=== PATIENT | female | born 1985 | race Caucasian/White ===

== ENCOUNTER 2019-01-08 07:30 | Outpatient (RCR) | payer OTHER, SELFPAY ==
--- NOTE | 2018-09-17 15:31 | PT.OIE ---
Current Diagnoses Stress incontinence (female) (male) (09/17/18) Other female genital prolapse (09/17/18) Provider Visit Care Team Role Provider Type Jose Manuel Duran CNP Attending Provider Non-Staff Specialty: Medical Address: [address] [place] [address], [id number] Email: Physical Therapy Initial Evaluation PT-OP-A Visit Information Start: 09/17/18 13:19 Freq: Status: Active Protocol: Document 09/17/18 13:45 AMB (Rec: 09/17/18 15:11 AMB [email or web address]) Out-Patient Physical Therapy Visit Information Visit Information Visit Type Initial Evaluation Visit Start Time 13:45 Visit Stop Time 14:30 Total Visit Minutes 45 Visit Number 1 PT-OP-B Current Condition Start: 09/17/18 13:19 Freq: Status: Active Protocol: Document 09/17/18 13:45 AMB (Rec: 09/17/18 15:11 AMB [email or web address]) Current Condition History of Current Condition Onset Date June 2018 Current Complaints stress incontinence History of Current Condition Tamiko reports stress incontinence throughout her adult life which has recently worsened with the of her first child in June. Her daughter was 6 pounds but Tamiko reports a second degree tear during vaginal delivery. Since then coughing, laughing , and sneezing have all caused small leaks of urine, especially if she is standing or walking. She has tried to run on the treadmill a few times, and while she has not noticed leaks with that, she does empty her bladder right before getting on the treadmill. She is , but admits she is not drinking enough water. She has not menstruated yet. She does report some discomfort with intercourse, more anteriorly, especially with certain positions. Prior Functional Status Baseline Function- Other intermittent small leaks, but less frequent Current Functional Impairments (Reported) Functional Limitations- Other small leaks that are more frequent ( a few times a week) . 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 PT-OP-C Subjective Start: 09/17/18 13:19 Freq: Status: Active Protocol: Document 09/17/18 13:45 AMB (Rec: 09/17/18 15:11 AMB [email or web address]) Patient Questionnaires Pelvic Pain and Urgency/Frequency Patient Symptom Scale Pelvic Pain Score 7 PT-OP-I Pelvic Floor Start: 09/17/18 13:19 Freq: Status: Active Protocol: Document 09/17/18 13:45 AMB (Rec: 09/17/18 15:11 AMB [email or web address]) Pelvic Floor Assessment Urine Pelvic Floor Surgery No Urinary Symptoms Prolapse Pain Leakage Size Small Leakage Cause Cough Exercise Sneeze Leaks Per Day 2-3x/week Voiding Frequency 4x/day Nocturia 1 Urine Pad Type Panty Liner Bowel Bowel Symptoms Constipation Pelvic Clock Pelvic Clock 12-3 Tenderness Pelvic Clock 3-6 Tenderness Pelvic Clock 6-9 Tenderness Pelvic Clock 9-12 Tenderness Pelvic Clock Other tenderness at perineum, but more so at urethra Prolapse Cystocele Grade 3 Rectocele Grade 1 SEMG (uV) Baseline 3.5 Quick Contraction 13 10 Second Contraction 9 Contraction Ability Voluntary Contraction Moderate Voluntary Relaxation Moderate Manual Muscle Testing Left 1 Manual Muscle Testing Right 1 Manual Muscle Testing Anterior 2 Manual Muscle Testing Posterior 2 Muscle Endurance (Seconds) 10 Number of Quick Contractions In 10 5 Seconds PT-OP-T Assessment and Plan Start: 09/17/18 13:19 Freq: Status: Active Protocol: Document 09/17/18 13:45 AMB (Rec: 09/17/18 15:28 AMB [email or web address]) Physical Therapy Assessment Rehab Potential Rehabilitation Potential Excellent Evaluation Complexity Number of Personal Factors/Comorbidities 1-2 Number of Body Systems Impaired 3 Clinical Presentation at Evaluation Stable Impairments Impairments Pain Soft Tissue Mobility Strength Goals Three Impairment continence Short Term Goal (STG) Tamiko will report she is able to avoid a leak with coughing if she contracts her pelvic floor muscles before the cough . STG Duration 4 weeks Level Vial Setter Goal (LTG) Tamiko will engage in the exercise of her choice without leaking. LTG Duration 8 weeks Two Impairment painful intercourse Short Term Goal (STG) Tamiko will engage in the postion of her choice without an increase in pelvic pain. STG Duration 4 weeks One Impairment pelvic floor strength Short Term Goal (STG) Tamiko will increase her pelvic floor strength to 4/5. STG Duration 4 weeks Fci Goal (LTG) Tamiko will peform a pelvic floor contraction while squatting. LTG Duration 8 weeks Assessment Summary Assessment The patient attends physical therapy less than 3 months post with stress urinary incontinence. She does have visible prolapse, but had fair strength considering her post status. She will benefit from PT to instruct her in appropriate pelvic floor strengthening, and address painful intercourse if self massage does not resolve it fully. Physical Therapy Plan Frequency and Duration Frequency of Treatment 1x/Week Duration of Treatment 8 weeks Plan of Care Start Date 09/17/18 Plan of Care End Date 11/12/18 Therapeutic Interventions Therapeutic Interventions Home Exercise Program Manual Therapy Neuromuscular Re-education Self-Care/Home Management Therapeutic Activities Therapeutic Exercises Modalities Biofeedback Electric Stimulation Next Visit Focus/Plan Next Note Type Treatment Note Next Visit Plan Progress pelvic floor strengthening into seated and possibly standing if pt tolerating well.
--- NOTE | 2018-09-17 15:31 | PT.OPPOC ---
Current Diagnoses Stress incontinence (female) (male) (09/17/18) Other female genital prolapse (09/17/18) Provider Visit Care Team Role Provider Type Jose Manuel Duran CNP Attending Provider Non-Staff Specialty: Medical Address: [address] [place] [address], [id number] Email: Plan Of Care PT-OP-T Assessment and Plan Start: 09/17/18 13:19 Freq: Status: Active Protocol: Document 09/17/18 13:45 AMB (Rec: 09/17/18 15:28 AMB [email or web address]) Physical Therapy Assessment Rehab Potential Rehabilitation Potential Excellent Evaluation Complexity Number of Personal Factors/Comorbidities 1-2 Number of Body Systems Impaired 3 Clinical Presentation at Evaluation Stable Impairments Impairments Pain Soft Tissue Mobility Strength Goals Three Impairment continence Short Term Goal (STG) Tamiko will report she is able to avoid a leak with coughing if she contracts her pelvic floor muscles before the cough . STG Duration 4 weeks Insurance Administrator Goal (LTG) Tamiko will engage in the exercise of her choice without leaking. LTG Duration 8 weeks Two Impairment painful intercourse Short Term Goal (STG) Tamiko will engage in the postion of her choice without an increase in pelvic pain. STG Duration 4 weeks One Impairment pelvic floor strength Short Term Goal (STG) Tamiko will increase her pelvic floor strength to 4/5. STG Duration 4 weeks Mcfp Goal (LTG) Tamiko will peform a pelvic floor contraction while squatting. LTG Duration 8 weeks Assessment Summary Assessment The patient attends physical therapy less than 3 months post with stress urinary incontinence. She does have visible prolapse, but had fair strength considering her post status. She will benefit from PT to instruct her in appropriate pelvic floor strengthening, and address painful intercourse if self massage does not resolve it fully. Physical Therapy Plan Frequency and Duration Frequency of Treatment 1x/Week Duration of Treatment 8 weeks Plan of Care Start Date 09/17/18 Plan of Care End Date 11/12/18 Therapeutic Interventions Therapeutic Interventions Home Exercise Program Manual Therapy Neuromuscular Re-education Self-Care/Home Management Therapeutic Activities Therapeutic Exercises Modalities Biofeedback Electric Stimulation Next Visit Focus/Plan Next Note Type Treatment Note Next Visit Plan Progress pelvic floor strengthening into seated and possibly standing if pt tolerating well. Plan of Care Dates Plan of Care Start Date 09/17/18 Plan of Care End Date 11/12/18 Please Sign and Return: I have reviewed this Plan of Care and certify that the skilled therapy services above are required to meet the patient?s needs. Physician Signature Date Printed Name and Credentials Clinical Instructor Signature Printed Name and Credentials
--- NOTE | 2018-09-26 15:15 | PT.OTN ---
Current Diagnoses Other female genital prolapse (09/26/18) Physical Therapy Treatment Note PT-OP-A Visit Information Start: 09/17/18 13:19 Freq: Status: Active Protocol: Document 09/26/18 07:30 AMB (Rec: 09/26/18 11:16 AMB [email or web address]) Out-Patient Physical Therapy Visit Information Visit Information Visit Type Treatment Note Visit Start Time 07:30 Visit Stop Time 08:15 Total Visit Minutes 45 Visit Number 2 PT-OP-B Current Condition Start: 09/17/18 13:19 Freq: Status: Active Protocol: Document 09/17/18 13:45 AMB (Rec: 09/17/18 15:11 AMB [email or web address]) Current Condition History of Current Condition Onset Date June 2018 Current Complaints stress incontinence History of Current Condition Tamiko reports stress incontinence throughout her adult life which has recently worsened with the of her first child in June. Her daughter was 6 pounds but Tamiko reports a second degree tear during vaginal delivery. Since then coughing, laughing , and sneezing have all caused small leaks of urine, especially if she is standing or walking. She has tried to run on the treadmill a few times, and while she has not noticed leaks with that, she does empty her bladder right before getting on the treadmill. She is , but admits she is not drinking enough water. She has not menstruated yet. She does report some discomfort with intercourse, more anteriorly, especially with certain positions. Prior Functional Status Baseline Function- Other intermittent small leaks, but less frequent Current Functional Impairments (Reported) Functional Limitations- Other small leaks that are more frequent ( a few times a week) . 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 PT-OP-C Subjective Start: 09/17/18 13:19 Freq: Status: Active Protocol: Document 09/26/18 07:30 AMB (Rec: 09/26/18 11:16 AMB [email or web address]) OP-PT Subjective Patient Comments Patient Comments Pt is doing well, back at work so drinking more fluids. Has noticed a bit more back pain with sitting at her desk. Running fast does cause leaks. PT-OP-I Pelvic Floor Start: 09/17/18 13:19 Freq: Status: Active Protocol: Document 09/17/18 13:45 AMB (Rec: 09/17/18 15:11 AMB [email or web address]) Pelvic Floor Assessment Urine Pelvic Floor Surgery No Urinary Symptoms Prolapse Pain Leakage Size Small Leakage Cause Cough Exercise Sneeze Leaks Per Day 2-3x/week Voiding Frequency 4x/day Nocturia 1 Urine Pad Type Panty Liner Bowel Bowel Symptoms Constipation Pelvic Clock Pelvic Clock 12-3 Tenderness Pelvic Clock 3-6 Tenderness Pelvic Clock 6-9 Tenderness Pelvic Clock 9-12 Tenderness Pelvic Clock Other tenderness at perineum, but more so at urethra Prolapse Cystocele Grade 3 Rectocele Grade 1 SEMG (uV) Baseline 3.5 Quick Contraction 13 10 Second Contraction 9 Contraction Ability Voluntary Contraction Moderate Voluntary Relaxation Moderate Manual Muscle Testing Left 1 Manual Muscle Testing Right 1 Manual Muscle Testing Anterior 2 Manual Muscle Testing Posterior 2 Muscle Endurance (Seconds) 10 Number of Quick Contractions In 10 5 Seconds PT-OP-Q Treatments Start: 09/17/18 13:19 Freq: Status: Active Protocol: Document 09/26/18 07:30 AMB (Rec: 09/26/18 11:16 AMB [email or web address]) Therapeutic Exercises Supine Exercises 2 Supine Exercise Name roll in Equipment Used ball Reps/Minutes 2x10 1 Supine Exercise Name roll out with pf contract Resistance #3 t band Reps/Minutes 2x10 Standing Exercises 1 Standing Exercise Name quick flicks and long holds Comments WBOS easier than modified tandem Neuro Re-Education Treatment Other Activities 1 Details pelvic floor quick flick and long hold with sEMG Comments Max 17, avg 13, resting 4 PT-OP-T Assessment and Plan Start: 09/17/18 13:19 Freq: Status: Active Protocol: Document 09/26/18 07:30 AMB (Rec: 09/26/18 11:16 AMB [email or web address]) Physical Therapy Assessment Assessment Summary Assessment Pt doing well with supine exercises, standing is more difficult. Discussed ergonomic setup, suggest foot rest since lower keyboard not an option. Physical Therapy Plan Next Visit Focus/Plan Next Note Type Treatment Note Next Visit Plan Progress pelvic floor strengthening into seated and possibly standing if pt tolerating well.
--- NOTE | 2018-10-03 10:12 | PT.OTN ---
Current Diagnoses Other female genital prolapse (10/03/18) Physical Therapy Treatment Note PT-OP-A Visit Information Start: 09/17/18 13:19 Freq: Status: Active Protocol: Document 10/03/18 07:30 AMB (Rec: 10/03/18 09:48 AMB [email or web address]) Out-Patient Physical Therapy Visit Information Visit Information Visit Type Treatment Note Visit Start Time 07:30 Visit Stop Time 08:15 Total Visit Minutes 45 Visit Number 3 PT-OP-B Current Condition Start: 09/17/18 13:19 Freq: Status: Active Protocol: Document 09/17/18 13:45 AMB (Rec: 09/17/18 15:11 AMB [email or web address]) Current Condition History of Current Condition Onset Date June 2018 Current Complaints stress incontinence History of Current Condition Tamiko reports stress incontinence throughout her adult life which has recently worsened with the of her first child in June. Her daughter was 6 pounds but Tamiko reports a second degree tear during vaginal delivery. Since then coughing, laughing , and sneezing have all caused small leaks of urine, especially if she is standing or walking. She has tried to run on the treadmill a few times, and while she has not noticed leaks with that, she does empty her bladder right before getting on the treadmill. She is , but admits she is not drinking enough water. She has not menstruated yet. She does report some discomfort with intercourse, more anteriorly, especially with certain positions. Prior Functional Status Baseline Function- Other intermittent small leaks, but less frequent Current Functional Impairments (Reported) Functional Limitations- Other small leaks that are more frequent ( a few times a week) . 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 PT-OP-C Subjective Start: 09/17/18 13:19 Freq: Status: Active Protocol: Document 10/03/18 07:30 AMB (Rec: 10/03/18 09:48 AMB [email or web address]) OP-PT Subjective Patient Comments Patient Comments Has not tried running since last week. Has been doing her workout, got a foot stool, but back is still hurting at work. PT-OP-I Pelvic Floor Start: 09/17/18 13:19 Freq: Status: Active Protocol: Document 09/17/18 13:45 AMB (Rec: 09/17/18 15:11 AMB [email or web address]) Pelvic Floor Assessment Urine Pelvic Floor Surgery No Urinary Symptoms Prolapse Pain Leakage Size Small Leakage Cause Cough Exercise Sneeze Leaks Per Day 2-3x/week Voiding Frequency 4x/day Nocturia 1 Urine Pad Type Panty Liner Bowel Bowel Symptoms Constipation Pelvic Clock Pelvic Clock 12-3 Tenderness Pelvic Clock 3-6 Tenderness Pelvic Clock 6-9 Tenderness Pelvic Clock 9-12 Tenderness Pelvic Clock Other tenderness at perineum, but more so at urethra Prolapse Cystocele Grade 3 Rectocele Grade 1 SEMG (uV) Baseline 3.5 Quick Contraction 13 10 Second Contraction 9 Contraction Ability Voluntary Contraction Moderate Voluntary Relaxation Moderate Manual Muscle Testing Left 1 Manual Muscle Testing Right 1 Manual Muscle Testing Anterior 2 Manual Muscle Testing Posterior 2 Muscle Endurance (Seconds) 10 Number of Quick Contractions In 10 5 Seconds PT-OP-Q Treatments Start: 09/17/18 13:19 Freq: Status: Active Protocol: Document 10/03/18 07:30 AMB (Rec: 10/03/18 09:48 AMB [email or web address]) Therapeutic Exercises Supine Exercises 3 Supine Exercise Name pelvic tilt with pelvic floor and TrA stab Reps/Minutes 10 1 Supine Exercise Name roll out with pf contract Resistance #3 t band Reps/Minutes 2x10 Standing Exercises 2 Standing Exercise Name partial lunge and squat Comments with long hold 1 Standing Exercise Name quick flicks and long holds Comments WBOS easier than modified tandem Neuro Re-Education Treatment Other Activities 1 Details pelvic floor quick flick and long hold with sEMG Comments Max 20, PT-OP-T Assessment and Plan Start: 09/17/18 13:19 Freq: Status: Active Protocol: Document 10/03/18 07:30 AMB (Rec: 10/03/18 09:48 AMB [email or web address]) Physical Therapy Assessment Assessment Summary Assessment Pt's core continues to be weak , which is impacting her back pain. Improved pelvic floor strength in standing withi movement. Physical Therapy Plan Next Visit Focus/Plan Next Note Type Treatment Note Next Visit Plan Progress pelvic floor strengthening into seated and possibly standing if pt tolerating well.
--- NOTE | 2018-10-17 11:42 | PT.OTN ---
Current Diagnoses Other female genital prolapse (10/17/18) Physical Therapy Treatment Note PT-OP-A Visit Information Start: 09/17/18 13:19 Freq: Status: Active Protocol: Document 10/17/18 07:30 AMB (Rec: 10/17/18 08:42 AMB [id number]) Out-Patient Physical Therapy Visit Information Visit Information Visit Type Treatment Note Visit Start Time 07:30 Visit Stop Time 08:15 Total Visit Minutes 45 Visit Number 4 PT-OP-B Current Condition Start: 09/17/18 13:19 Freq: Status: Active Protocol: Document 09/17/18 13:45 AMB (Rec: 09/17/18 15:11 AMB [email or web address]) Current Condition History of Current Condition Onset Date June 2018 Current Complaints stress incontinence History of Current Condition Tamiko reports stress incontinence throughout her adult life which has recently worsened with the of her first child in June. Her daughter was 6 pounds but Tamiko reports a second degree tear during vaginal delivery. Since then coughing, laughing , and sneezing have all caused small leaks of urine, especially if she is standing or walking. She has tried to run on the treadmill a few times, and while she has not noticed leaks with that, she does empty her bladder right before getting on the treadmill. She is , but admits she is not drinking enough water. She has not menstruated yet. She does report some discomfort with intercourse, more anteriorly, especially with certain positions. Prior Functional Status Baseline Function- Other intermittent small leaks, but less frequent Current Functional Impairments (Reported) Functional Limitations- Other small leaks that are more frequent ( a few times a week) . 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 PT-OP-C Subjective Start: 09/17/18 13:19 Freq: Status: Active Protocol: Document 10/17/18 07:30 AMB (Rec: 10/17/18 08:42 AMB [email or web address]) OP-PT Subjective Patient Comments Patient Comments Pt has been doing well, not noticing any leaks, but not pushing it either. PT-OP-I Pelvic Floor Start: 09/17/18 13:19 Freq: Status: Active Protocol: Document 09/17/18 13:45 AMB (Rec: 09/17/18 15:11 AMB [email or web address]) Pelvic Floor Assessment Urine Pelvic Floor Surgery No Urinary Symptoms Prolapse Pain Leakage Size Small Leakage Cause Cough Exercise Sneeze Leaks Per Day 2-3x/week Voiding Frequency 4x/day Nocturia 1 Urine Pad Type Panty Liner Bowel Bowel Symptoms Constipation Pelvic Clock Pelvic Clock 12-3 Tenderness Pelvic Clock 3-6 Tenderness Pelvic Clock 6-9 Tenderness Pelvic Clock 9-12 Tenderness Pelvic Clock Other tenderness at perineum, but more so at urethra Prolapse Cystocele Grade 3 Rectocele Grade 1 SEMG (uV) Baseline 3.5 Quick Contraction 13 10 Second Contraction 9 Contraction Ability Voluntary Contraction Moderate Voluntary Relaxation Moderate Manual Muscle Testing Left 1 Manual Muscle Testing Right 1 Manual Muscle Testing Anterior 2 Manual Muscle Testing Posterior 2 Muscle Endurance (Seconds) 10 Number of Quick Contractions In 10 5 Seconds PT-OP-Q Treatments Start: 09/17/18 13:19 Freq: Status: Active Protocol: Document 10/17/18 07:30 AMB (Rec: 10/17/18 08:49 AMB [id number]) Therapeutic Exercises Supine Exercises 3 Supine Exercise Name pelvic tilt with pelvic floor and TrA stab Reps/Minutes 10 Comments vc for TrA Standing Exercises 4 Standing Exercise Name scap squeeze with TrA and pelvic floor 3 Standing Exercise Name sit to stand Comments with long hold 2 Standing Exercise Name partial lunge and squat Comments with long hold Other Exercises 1 Other Exercise Name quadruped shoulder flexion Comments with pelvic floor and TrA PT-OP-T Assessment and Plan Start: 09/17/18 13:19 Freq: Status: Active Protocol: Document 10/17/18 07:30 AMB (Rec: 10/17/18 08:45 AMB [id number]) Physical Therapy Assessment Assessment Summary Assessment Tamiko's low back pain is improving, but she is noticing upper back pain with return to work. She had difficulty with TrA stabilization, tending to push stomach out rather than pulling in. Tamiko does have palpable diastasis recti that may make TrA stab more challenging. No leaks, but also not pushing herself as far as exercise because has been very busy. Physical Therapy Plan Next Visit Focus/Plan Next Note Type Treatment Note Next Visit Plan Re-examine TrA stabilization, progress in quadruped
--- NOTE | 2018-10-26 12:00 | PT.OTN ---
Current Diagnoses Other female genital prolapse (10/26/18) Physical Therapy Treatment Note PT-OP-A Visit Information Start: 09/17/18 13:19 Freq: Status: Active Protocol: Document 10/26/18 11:15 BS (Rec: 10/26/18 10:34 BS [id number]) Out-Patient Physical Therapy Visit Information Visit Information Visit Type Treatment Note Visit Start Time 10:30 Visit Stop Time 11:12 Total Visit Minutes 42 Visit Number 5 PT-OP-B Current Condition Start: 09/17/18 13:19 Freq: Status: Active Protocol: Document 09/17/18 13:45 AMB (Rec: 09/17/18 15:11 AMB [email or web address]) Current Condition History of Current Condition Onset Date June 2018 Current Complaints stress incontinence History of Current Condition Tamiko reports stress incontinence throughout her adult life which has recently worsened with the of her first child in June. Her daughter was 6 pounds but Tamiko reports a second degree tear during vaginal delivery. Since then coughing, laughing , and sneezing have all caused small leaks of urine, especially if she is standing or walking. She has tried to run on the treadmill a few times, and while she has not noticed leaks with that, she does empty her bladder right before getting on the treadmill. She is , but admits she is not drinking enough water. She has not menstruated yet. She does report some discomfort with intercourse, more anteriorly, especially with certain positions. Prior Functional Status Baseline Function- Other intermittent small leaks, but less frequent Current Functional Impairments (Reported) Functional Limitations- Other small leaks that are more frequent ( a few times a week) . 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 PT-OP-C Subjective Start: 09/17/18 13:19 Freq: Status: Active Protocol: Document 10/26/18 11:15 BS (Rec: 10/26/18 10:34 BS [id number]) OP-PT Subjective Patient Comments Patient Comments Pt has done 10 min workout and has not had any leaking. Feels like she is better able to activate TA. PT-OP-I Pelvic Floor Start: 09/17/18 13:19 Freq: Status: Active Protocol: Document 09/17/18 13:45 AMB (Rec: 09/17/18 15:11 AMB [email or web address]) Pelvic Floor Assessment Urine Pelvic Floor Surgery No Urinary Symptoms Prolapse Pain Leakage Size Small Leakage Cause Cough Exercise Sneeze Leaks Per Day 2-3x/week Voiding Frequency 4x/day Nocturia 1 Urine Pad Type Panty Liner Bowel Bowel Symptoms Constipation Pelvic Clock Pelvic Clock 12-3 Tenderness Pelvic Clock 3-6 Tenderness Pelvic Clock 6-9 Tenderness Pelvic Clock 9-12 Tenderness Pelvic Clock Other tenderness at perineum, but more so at urethra Prolapse Cystocele Grade 3 Rectocele Grade 1 SEMG (uV) Baseline 3.5 Quick Contraction 13 10 Second Contraction 9 Contraction Ability Voluntary Contraction Moderate Voluntary Relaxation Moderate Manual Muscle Testing Left 1 Manual Muscle Testing Right 1 Manual Muscle Testing Anterior 2 Manual Muscle Testing Posterior 2 Muscle Endurance (Seconds) 10 Number of Quick Contractions In 10 5 Seconds PT-OP-Q Treatments Start: 09/17/18 13:19 Freq: Status: Active Protocol: Document 10/26/18 11:15 BS (Rec: 10/26/18 11:51 BS [id number]) Therapeutic Exercises Supine Exercises 3 Supine Exercise Name pelvic tilt with pelvic floor and TrA stab Reps/Minutes 15 Comments vc for TrA 1 Supine Exercise Name roll out with pf contract Resistance #3 t band, small ball Reps/Minutes x20 Standing Exercises 2 Standing Exercise Name partial lunge and squat Resistance 7# DBs Reps/Minutes x15 each Comments 2 DBs lunge, 1 7# squat 1 Standing Exercise Name Hip Abduction Side bilateral Reps/Minutes x15 each Comments pelvic floor contraction Other Exercises 2 Other Exercise Name Quadruped TA contraction Reps/Minutes x12 1 Other Exercise Name Quadruped alternating arms/ legs Reps/Minutes x15 each Comments begin with arms progress to arms and legs Manual Therapy Treatment Taping 1 Body Location Abdominals Comments KT Tape, 2 Xs over lower abs PT-OP-T Assessment and Plan Start: 09/17/18 13:19 Freq: Status: Active Protocol: Document 10/26/18 11:15 BS (Rec: 10/26/18 11:51 BS [id number]) Physical Therapy Assessment Assessment Summary Assessment Tamiko has taken this week off of work and her back has felt better but she continues to demo poor posture when holding baby. Pt is showing improved ability to engage TA during exercises. Physical Therapy Plan Next Visit Focus/Plan Next Note Type Treatment Note Next Visit Plan Assess response to KT taping. Progress quadruped and standing exercises as able.
--- NOTE | 2018-11-02 09:02 | PT.OTN ---
Current Diagnoses Other female genital prolapse (11/02/18) Physical Therapy Treatment Note PT-OP-A Visit Information Start: 09/17/18 13:19 Freq: Status: Active Protocol: Document 11/02/18 08:15 BS (Rec: 11/02/18 07:31 BS [id number]) Out-Patient Physical Therapy Visit Information Visit Information Visit Type Treatment Note Visit Start Time 07:30 Visit Stop Time 08:11 Total Visit Minutes 41 Visit Number 6 PT-OP-B Current Condition Start: 09/17/18 13:19 Freq: Status: Active Protocol: Document 09/17/18 13:45 AMB (Rec: 09/17/18 15:11 AMB [email or web address]) Current Condition History of Current Condition Onset Date June 2018 Current Complaints stress incontinence History of Current Condition Tamiko reports stress incontinence throughout her adult life which has recently worsened with the of her first child in June. Her daughter was 6 pounds but Tamiko reports a second degree tear during vaginal delivery. Since then coughing, laughing , and sneezing have all caused small leaks of urine, especially if she is standing or walking. She has tried to run on the treadmill a few times, and while she has not noticed leaks with that, she does empty her bladder right before getting on the treadmill. She is , but admits she is not drinking enough water. She has not menstruated yet. She does report some discomfort with intercourse, more anteriorly, especially with certain positions. Prior Functional Status Baseline Function- Other intermittent small leaks, but less frequent Current Functional Impairments (Reported) Functional Limitations- Other small leaks that are more frequent ( a few times a week) . 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 PT-OP-C Subjective Start: 09/17/18 13:19 Freq: Status: Active Protocol: Document 11/02/18 08:15 BS (Rec: 11/02/18 07:31 BS [id number]) OP-PT Subjective Patient Comments Patient Comments Pt has had 2 instances of of urinary leakage since last session. Once during sneezing while going down stairs and then when transitioning from sit to stand. Pt reports that she did like the KT tape on abdominals for faciliation of TA contraction during exercises. PT-OP-I Pelvic Floor Start: 09/17/18 13:19 Freq: Status: Active Protocol: Document 09/17/18 13:45 AMB (Rec: 09/17/18 15:11 AMB [email or web address]) Pelvic Floor Assessment Urine Pelvic Floor Surgery No Urinary Symptoms Prolapse Pain Leakage Size Small Leakage Cause Cough Exercise Sneeze Leaks Per Day 2-3x/week Voiding Frequency 4x/day Nocturia 1 Urine Pad Type Panty Liner Bowel Bowel Symptoms Constipation Pelvic Clock Pelvic Clock 12-3 Tenderness Pelvic Clock 3-6 Tenderness Pelvic Clock 6-9 Tenderness Pelvic Clock 9-12 Tenderness Pelvic Clock Other tenderness at perineum, but more so at urethra Prolapse Cystocele Grade 3 Rectocele Grade 1 SEMG (uV) Baseline 3.5 Quick Contraction 13 10 Second Contraction 9 Contraction Ability Voluntary Contraction Moderate Voluntary Relaxation Moderate Manual Muscle Testing Left 1 Manual Muscle Testing Right 1 Manual Muscle Testing Anterior 2 Manual Muscle Testing Posterior 2 Muscle Endurance (Seconds) 10 Number of Quick Contractions In 10 5 Seconds PT-OP-Q Treatments Start: 09/17/18 13:19 Freq: Status: Active Protocol: Document 11/02/18 08:15 BS (Rec: 11/02/18 07:31 BS [id number]) Therapeutic Exercises Supine Exercises 3 Supine Exercise Name pelvic tilt with pelvic floor and TrA stab Reps/Minutes 2x15 Comments pre & post KT taping abdominals 1 Supine Exercise Name roll out with pf contract Resistance #3 t band, small ball Reps/Minutes x20 Standing Exercises 5 Standing Exercise Name Mini Squats Equipment Used no weights Reps/Minutes x10 Comments TA contraction 2 Standing Exercise Name partial lunge and squat Resistance 7# DBs Reps/Minutes x10 each Comments 2 DBs lunge, 1 7# squat 1 Standing Exercise Name Hip Abduction Side bilateral Reps/Minutes x12 each Comments pelvic floor contraction Other Exercises 2 Other Exercise Name Quadruped arms only Reps/Minutes x15 Comments TA bracing 1 Other Exercise Name Quadruped alternating arms/ legs Reps/Minutes x15 each Comments VCs for TA contraction, following KT taping Manual Therapy Treatment Taping 1 Body Location Abdominals Comments KT Tape, 2 Xs over lower abs PT-OP-T Assessment and Plan Start: 09/17/18 13:19 Freq: Status: Active Protocol: Document 11/02/18 08:15 BS (Rec: 11/02/18 08:13 BS [id number]) Physical Therapy Assessment Assessment Summary Assessment Tamiko has returned to work this week and is noticing more back pain, she has made some modifications to her work environment. She has had 2 episodes of leakage since last apt. We have progressed her pelvic floor exercises with added resistance and standing lunges/squats. Physical Therapy Plan Next Visit Focus/Plan Next Note Type Treatment Note Next Visit Plan Monitor leaking, if more leaking then reduce resistance with lunges and squats as pt may have more pelvic floor fatigue with recent exercise progression. Pt plans to trial running this weekend, ask about leaking.
--- NOTE | 2018-11-06 12:47 | PT.OTN ---
Current Diagnoses Other female genital prolapse (11/06/18) Physical Therapy Treatment Note PT-OP-A Visit Information Start: 09/17/18 13:19 Freq: Status: Active Protocol: Document 11/06/18 07:30 AMB (Rec: 11/06/18 07:50 AMB [id number]) Out-Patient Physical Therapy Visit Information Visit Information Visit Type Treatment Note Visit Start Time 07:30 Visit Stop Time 08:11 Total Visit Minutes 41 Visit Number 7 PT-OP-B Current Condition Start: 09/17/18 13:19 Freq: Status: Active Protocol: Document 09/17/18 13:45 AMB (Rec: 09/17/18 15:11 AMB [email or web address]) Current Condition History of Current Condition Onset Date June 2018 Current Complaints stress incontinence History of Current Condition Tamiko reports stress incontinence throughout her adult life which has recently worsened with the of her first child in June. Her daughter was 6 pounds but Tamiko reports a second degree tear during vaginal delivery. Since then coughing, laughing , and sneezing have all caused small leaks of urine, especially if she is standing or walking. She has tried to run on the treadmill a few times, and while she has not noticed leaks with that, she does empty her bladder right before getting on the treadmill. She is , but admits she is not drinking enough water. She has not menstruated yet. She does report some discomfort with intercourse, more anteriorly, especially with certain positions. Prior Functional Status Baseline Function- Other intermittent small leaks, but less frequent Current Functional Impairments (Reported) Functional Limitations- Other small leaks that are more frequent ( a few times a week) . 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 PT-OP-C Subjective Start: 09/17/18 13:19 Freq: Status: Active Protocol: Document 11/06/18 07:30 AMB (Rec: 11/06/18 07:50 AMB [id number]) OP-PT Subjective Patient Comments Patient Comments Leaking with standing sneeze on Monday, able to do jumping jacks, but had just voided bladder. PT-OP-I Pelvic Floor Start: 09/17/18 13:19 Freq: Status: Active Protocol: Document 09/17/18 13:45 AMB (Rec: 09/17/18 15:11 AMB [email or web address]) Pelvic Floor Assessment Urine Pelvic Floor Surgery No Urinary Symptoms Prolapse Pain Leakage Size Small Leakage Cause Cough Exercise Sneeze Leaks Per Day 2-3x/week Voiding Frequency 4x/day Nocturia 1 Urine Pad Type Panty Liner Bowel Bowel Symptoms Constipation Pelvic Clock Pelvic Clock 12-3 Tenderness Pelvic Clock 3-6 Tenderness Pelvic Clock 6-9 Tenderness Pelvic Clock 9-12 Tenderness Pelvic Clock Other tenderness at perineum, but more so at urethra Prolapse Cystocele Grade 3 Rectocele Grade 1 SEMG (uV) Baseline 3.5 Quick Contraction 13 10 Second Contraction 9 Contraction Ability Voluntary Contraction Moderate Voluntary Relaxation Moderate Manual Muscle Testing Left 1 Manual Muscle Testing Right 1 Manual Muscle Testing Anterior 2 Manual Muscle Testing Posterior 2 Muscle Endurance (Seconds) 10 Number of Quick Contractions In 10 5 Seconds PT-OP-Q Treatments Start: 09/17/18 13:19 Freq: Status: Active Protocol: Document 11/06/18 07:30 AMB (Rec: 11/06/18 08:19 AMB [id number]) Cardio Equipment Elliptical Duration (Minutes) 4 Resistance 7 Gym Equipment Shuttle Recovery Bilateral Squats Details plyos Resistance 50# Therapeutic Exercises Supine Exercises 3 Supine Exercise Name pelvic tilt with pelvic floor and TrA stab Reps/Minutes 2x15 Comments pre & post KT taping abdominals 1 Supine Exercise Name roll out with pf contract Resistance #3 t band, small ball Reps/Minutes x20 Standing Exercises 5 Standing Exercise Name Mini Squats Equipment Used no weights Reps/Minutes x10 Comments TA contraction 2 Standing Exercise Name partial lunge and squat Resistance 10# DBs Reps/Minutes x10 each Comments 2 DBs lunge, 1 7# squat Other Exercises 2 Other Exercise Name Quadruped arms only Reps/Minutes x15 Comments TA bracing 1 Other Exercise Name Quadruped alternating arms/ legs Reps/Minutes x15 each Comments VCs for TA contraction, following KT taping Therapeutic Activity Therapeutic Activity 1 Name lifting with PF contract Comments 20# waist to knee height. PT-OP-T Assessment and Plan Start: 09/17/18 13:19 Freq: Status: Active Protocol: Document 11/06/18 07:30 AMB (Rec: 11/06/18 08:19 AMB [id number]) Physical Therapy Assessment Assessment Summary Assessment Pt tolerated all strengthening without feeling leaks today, abdominal stabilization is improving. Plan to progress HEP at next visit. Physical Therapy Plan Next Visit Focus/Plan Next Note Type Treatment Note Next Visit Plan Monitor leaking, Assess return to running.
--- NOTE | 2018-11-16 16:19 | PT.OTN ---
Current Diagnoses Other female genital prolapse (11/16/18) Physical Therapy Treatment Note PT-OP-A Visit Information Start: 09/17/18 13:19 Freq: Status: Active Protocol: Document 11/16/18 12:24 BS (Rec: 11/16/18 12:32 BS [email or web address]) Out-Patient Physical Therapy Visit Information Visit Information Visit Type Treatment Note Visit Start Time 07:30 Visit Stop Time 08:15 Total Visit Minutes 45 Visit Number 8 PT-OP-B Current Condition Start: 09/17/18 13:19 Freq: Status: Active Protocol: Document 09/17/18 13:45 AMB (Rec: 09/17/18 15:11 AMB [email or web address]) Current Condition History of Current Condition Onset Date June 2018 Current Complaints stress incontinence History of Current Condition Tamiko reports stress incontinence throughout her adult life which has recently worsened with the of her first child in June. Her daughter was 6 pounds but Tamiko reports a second degree tear during vaginal delivery. Since then coughing, laughing , and sneezing have all caused small leaks of urine, especially if she is standing or walking. She has tried to run on the treadmill a few times, and while she has not noticed leaks with that, she does empty her bladder right before getting on the treadmill. She is , but admits she is not drinking enough water. She has not menstruated yet. She does report some discomfort with intercourse, more anteriorly, especially with certain positions. Prior Functional Status Baseline Function- Other intermittent small leaks, but less frequent Current Functional Impairments (Reported) Functional Limitations- Other small leaks that are more frequent ( a few times a week) . 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 PT-OP-C Subjective Start: 09/17/18 13:19 Freq: Status: Active Protocol: Document 11/16/18 12:24 BS (Rec: 11/16/18 12:32 BS [email or web address]) OP-PT Subjective Patient Comments Patient Comments Pt went on run this last week, she noticed increased pelvic pressure, but did not leak. Able to make it 5 minutes. PT-OP-I Pelvic Floor Start: 09/17/18 13:19 Freq: Status: Active Protocol: Document 09/17/18 13:45 AMB (Rec: 03/04/19 15:11 AMB [email or web address]) Pelvic Floor Assessment Urine Pelvic Floor Surgery No Urinary Symptoms Prolapse Pain Leakage Size Small Leakage Cause Cough Exercise Sneeze Leaks Per Day 2-3x/week Voiding Frequency 4x/day Nocturia 1 Urine Pad Type Panty Liner Bowel Bowel Symptoms Constipation Pelvic Clock Pelvic Clock 12-3 Tenderness Pelvic Clock 3-6 Tenderness Pelvic Clock 6-9 Tenderness Pelvic Clock 9-12 Tenderness Pelvic Clock Other tenderness at perineum, but more so at urethra Prolapse Cystocele Grade 3 Rectocele Grade 1 SEMG (uV) Baseline 3.5 Quick Contraction 13 10 Second Contraction 9 Contraction Ability Voluntary Contraction Moderate Voluntary Relaxation Moderate Manual Muscle Testing Left 1 Manual Muscle Testing Right 1 Manual Muscle Testing Anterior 2 Manual Muscle Testing Posterior 2 Muscle Endurance (Seconds) 10 Number of Quick Contractions In 10 5 Seconds PT-OP-Q Treatments Start: 09/17/18 13:19 Freq: Status: Active Protocol: Document 11/16/18 12:24 BS (Rec: 11/16/18 12:32 BS [email or web address]) Gym Equipment Shuttle Recovery Unilateral Squats Resistance 50# Reps/Time x15 each leg Bilateral Squats Details plyos and B squats Resistance 50#, 75# Reps/Time Double LE jumps Therapeutic Exercises Sitting Exercises 1 Sitting Exercise Name Roll in/out Equipment Used #2 band, small ball Reps/Minutes x20 each Comments PF contractions Standing Exercises 3 Standing Exercise Name Single Limb Stance Reps/Minutes x10 Comments quick flicks + SL stance 2 Standing Exercise Name partial lunge and squat Resistance 10# DBs Reps/Minutes x15 each Comments 2 DBs lunge, 1 7# squat 1 Standing Exercise Name Side Lunge Reps/Minutes x8 each Comments PF contraction Other Exercises 2 Other Exercise Name Quadruped arms only Reps/Minutes x15 Comments TA bracing 1 Other Exercise Name Quadruped alternating arms/ legs Reps/Minutes x15 each Comments VCs for TA contraction, following KT taping PT-OP-T Assessment and Plan Start: 09/17/18 13:19 Freq: Status: Active Protocol: Document 11/16/18 12:25 AMB (Rec: 11/16/18 16:17 AMB [email or web address]) Physical Therapy Assessment Goals Three Impairment continence Short Term Goal (STG) Tamiko will report she is able to avoid a leak with coughing if she contracts her pelvic floor muscles before the cough . STG Duration 4 weeks [employer] Goal (LTG) Tamiko will engage in the exercise of her choice without leaking. 5/3: progress made, Tamiko can run but feels pelvic heaviness after 5 minutes, no leaking LTG Duration 8 weeks Two Impairment painful intercourse Short Term Goal (STG) Tamiko will engage in the postion of her choice without an increase in pelvic pain. STG Duration MET One Impairment pelvic floor strength Short Term Goal (STG) Tamiko will increase her pelvic floor strength to 4/5. STG Duration 4 weeks Custodial Goal (LTG) Tamiko will peform a pelvic floor contraction while squatting. 5/3 Progress made, Tamiko needs to re-engage pelvic floor muscles at the bottom of her squat. LTG Duration 8 weeks Assessment Summary Assessment Pt tolerated functional LE strengthening and plyometrics without leakage or increased pelvic pressure today. She will trial run/walk intervals and monitor her pelvic pressure. She continues to notice intermittent small leaks wiht a strong cough/ sneeze especially if standing, but feels that she is improving. Physical Therapy Plan Frequency and Duration Frequency of Treatment 1-2x/week Duration of Treatment 10 weeks Plan of Care Start Date 11/16/18 Plan of Care End Date 01/25/19 Therapeutic Interventions Therapeutic Interventions Home Exercise Program Manual Therapy Neuromuscular Re-education Self-Care/Home Management Therapeutic Activities Therapeutic Exercises Modalities Biofeedback Electric Stimulation Next Visit Focus/Plan Next Note Type Treatment Note Next Visit Plan Consider advancing plyos to standing if run/walk intervals went well.
--- NOTE | 2018-11-16 16:20 | PT.OPPOC ---
Current Diagnoses Other female genital prolapse (11/16/18) Provider Visit Care Team Role Provider Type Jose Manuel Duran CNP Attending Provider Non-Staff Specialty: Medical Address: [address] [place] [address], [place], [address] Email: Plan Of Care PT-OP-T Assessment and Plan Start: 09/17/18 13:19 Freq: Status: Active Protocol: Document 11/16/18 12:25 AMB (Rec: 11/16/18 16:17 AMB [email or web address]) Physical Therapy Assessment Goals Three Impairment continence Short Term Goal (STG) Tamiko will report she is able to avoid a leak with coughing if she contracts her pelvic floor muscles before the cough . STG Duration 4 weeks [employer] Goal (LTG) Tamiko will engage in the exercise of her choice without leaking. 5/3: progress made, Tamiko can run but feels pelvic heaviness after 5 minutes, no leaking LTG Duration 8 weeks Two Impairment painful intercourse Short Term Goal (STG) Tamiko will engage in the postion of her choice without an increase in pelvic pain. STG Duration MET One Impairment pelvic floor strength Short Term Goal (STG) Tamiko will increase her pelvic floor strength to 4/5. STG Duration 4 weeks Senior Living Goal (LTG) Tamiko will peform a pelvic floor contraction while squatting. 5/3 Progress made, Tamiko needs to re-engage pelvic floor muscles at the bottom of her squat. LTG Duration 8 weeks Assessment Summary Assessment Pt tolerated functional LE strengthening and plyometrics without leakage or increased pelvic pressure today. She will trial run/walk intervals and monitor her pelvic pressure. She continues to notice intermittent small leaks wiht a strong cough/ sneeze especially if standing, but feels that she is improving. Physical Therapy Plan Frequency and Duration Frequency of Treatment 1-2x/week Duration of Treatment 10 weeks Plan of Care Start Date 11/16/18 Plan of Care End Date 01/25/19 Therapeutic Interventions Therapeutic Interventions Home Exercise Program Manual Therapy Neuromuscular Re-education Self-Care/Home Management Therapeutic Activities Therapeutic Exercises Modalities Biofeedback Electric Stimulation Next Visit Focus/Plan Next Note Type Treatment Note Next Visit Plan Consider advancing plyos to standing if run/walk intervals went well. Plan of Care Dates Plan of Care Start Date 11/16/18 Plan of Care End Date 01/25/19 Please Sign and Return: I have reviewed this Plan of Care and certify that the skilled therapy services above are required to meet the patient?s needs. Physician Signature Date Printed Name and Credentials Clinical Instructor Signature Printed Name and Credentials
--- NOTE | 2018-11-26 08:38 | PT.OTN ---
Current Diagnoses Other female genital prolapse (11/26/18) Physical Therapy Treatment Note PT-OP-A Visit Information Start: 09/17/18 13:19 Freq: Status: Active Protocol: Document 11/26/18 07:30 AMB (Rec: 11/26/18 08:27 AMB [id number]) Out-Patient Physical Therapy Visit Information Visit Information Visit Type Treatment Note Visit Start Time 07:30 Visit Stop Time 08:15 Total Visit Minutes 45 Visit Number 9 PT-OP-B Current Condition Start: 09/17/18 13:19 Freq: Status: Active Protocol: Document 09/17/18 13:45 AMB (Rec: 09/17/18 15:11 AMB [email or web address]) Current Condition History of Current Condition Onset Date June 2018 Current Complaints stress incontinence History of Current Condition Tamiko reports stress incontinence throughout her adult life which has recently worsened with the of her first child in June. Her daughter was 6 pounds but Tamiko reports a second degree tear during vaginal delivery. Since then coughing, laughing , and sneezing have all caused small leaks of urine, especially if she is standing or walking. She has tried to run on the treadmill a few times, and while she has not noticed leaks with that, she does empty her bladder right before getting on the treadmill. She is , but admits she is not drinking enough water. She has not menstruated yet. She does report some discomfort with intercourse, more anteriorly, especially with certain positions. Prior Functional Status Baseline Function- Other intermittent small leaks, but less frequent Current Functional Impairments (Reported) Functional Limitations- Other small leaks that are more frequent ( a few times a week) . 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 PT-OP-C Subjective Start: 09/17/18 13:19 Freq: Status: Active Protocol: Document 11/26/18 07:30 AMB (Rec: 11/26/18 08:27 AMB [email or web address]) OP-PT Subjective Patient Comments Patient Comments Pt did a 10 minute run, walk over the week and did not feel the heaviness. PT-OP-I Pelvic Floor Start: 09/17/18 13:19 Freq: Status: Active Protocol: Document 09/17/18 13:45 AMB (Rec: 09/17/18 15:11 AMB [email or web address]) Pelvic Floor Assessment Urine Pelvic Floor Surgery No Urinary Symptoms Prolapse Pain Leakage Size Small Leakage Cause Cough Exercise Sneeze Leaks Per Day 2-3x/week Voiding Frequency 4x/day Nocturia 1 Urine Pad Type Panty Liner Bowel Bowel Symptoms Constipation Pelvic Clock Pelvic Clock 12-3 Tenderness Pelvic Clock 3-6 Tenderness Pelvic Clock 6-9 Tenderness Pelvic Clock 9-12 Tenderness Pelvic Clock Other tenderness at perineum, but more so at urethra Prolapse Cystocele Grade 3 Rectocele Grade 1 SEMG (uV) Baseline 3.5 Quick Contraction 13 10 Second Contraction 9 Contraction Ability Voluntary Contraction Moderate Voluntary Relaxation Moderate Manual Muscle Testing Left 1 Manual Muscle Testing Right 1 Manual Muscle Testing Anterior 2 Manual Muscle Testing Posterior 2 Muscle Endurance (Seconds) 10 Number of Quick Contractions In 10 5 Seconds PT-OP-Q Treatments Start: 09/17/18 13:19 Freq: Status: Active Protocol: Document 11/26/18 07:30 AMB (Rec: 11/26/18 08:38 AMB [id number]) Gym Equipment Shuttle Recovery Unilateral Squats Resistance 50# Reps/Time x15 each leg with a jump Bilateral Squats Details plyos and B squats Resistance 50#, Reps/Time Double LE jumps Therapeutic Exercises Supine Exercises 2 Supine Exercise Name supine september Comments 30 Standing Exercises 5 Standing Exercise Name Mini Squats Equipment Used 6# Reps/Minutes 2x10 Comments TA contraction 2 Standing Exercise Name partial lunge and squat Resistance 6# DBs Reps/Minutes x15 each Comments L knee pain Other Exercises 1 Other Exercise Name Quadruped alternating arms/ legs Reps/Minutes x15 each Comments VCs for TA contraction, following KT taping PT-OP-T Assessment and Plan Start: 09/17/18 13:19 Freq: Status: Active Protocol: Document 11/26/18 07:30 AMB (Rec: 11/26/18 08:38 AMB [id number]) Physical Therapy Assessment Assessment Summary Assessment Pt is doing well, but will need to slowly progress, as fatigue of pelvic floor remains an issue. Physical Therapy Plan Next Visit Focus/Plan Next Note Type Treatment Note Next Visit Plan Consider advancing plyos to standing if run/walk intervals went well.
--- NOTE | 2018-12-04 16:35 | PT.OTN ---
Current Diagnoses Other female genital prolapse (12/04/18) Physical Therapy Treatment Note PT-OP-A Visit Information Start: 09/17/18 13:19 Freq: Status: Active Protocol: Document 12/04/18 07:30 AMB (Rec: 12/04/18 16:35 AMB [email or web address]) Out-Patient Physical Therapy Visit Information Visit Information Visit Type Treatment Note Visit Start Time 07:30 Visit Stop Time 08:15 Total Visit Minutes 45 Visit Number 10 PT-OP-B Current Condition Start: 09/17/18 13:19 Freq: Status: Active Protocol: Document 09/17/18 13:45 AMB (Rec: 09/17/18 15:11 AMB [email or web address]) Current Condition History of Current Condition Onset Date June 2018 Current Complaints stress incontinence History of Current Condition Tamiko reports stress incontinence throughout her adult life which has recently worsened with the of her first child in June. Her daughter was 6 pounds but Tamiko reports a second degree tear during vaginal delivery. Since then coughing, laughing , and sneezing have all caused small leaks of urine, especially if she is standing or walking. She has tried to run on the treadmill a few times, and while she has not noticed leaks with that, she does empty her bladder right before getting on the treadmill. She is , but admits she is not drinking enough water. She has not menstruated yet. She does report some discomfort with intercourse, more anteriorly, especially with certain positions. Prior Functional Status Baseline Function- Other intermittent small leaks, but less frequent Current Functional Impairments (Reported) Functional Limitations- Other small leaks that are more frequent ( a few times a week) . 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 PT-OP-C Subjective Start: 09/17/18 13:19 Freq: Status: Active Protocol: Document 12/04/18 07:30 AMB (Rec: 12/04/18 16:35 AMB [email or web address]) OP-PT Subjective Patient Comments Patient Comments Pt has not been exercising as much because her knee has been hurting. PT-OP-I Pelvic Floor Start: 09/17/18 13:19 Freq: Status: Active Protocol: Document 09/17/18 13:45 AMB (Rec: 09/17/18 15:11 AMB [email or web address]) Pelvic Floor Assessment Urine Pelvic Floor Surgery No Urinary Symptoms Prolapse Pain Leakage Size Small Leakage Cause Cough Exercise Sneeze Leaks Per Day 2-3x/week Voiding Frequency 4x/day Nocturia 1 Urine Pad Type Panty Liner Bowel Bowel Symptoms Constipation Pelvic Clock Pelvic Clock 12-3 Tenderness Pelvic Clock 3-6 Tenderness Pelvic Clock 6-9 Tenderness Pelvic Clock 9-12 Tenderness Pelvic Clock Other tenderness at perineum, but more so at urethra Prolapse Cystocele Grade 3 Rectocele Grade 1 SEMG (uV) Baseline 3.5 Quick Contraction 13 10 Second Contraction 9 Contraction Ability Voluntary Contraction Moderate Voluntary Relaxation Moderate Manual Muscle Testing Left 1 Manual Muscle Testing Right 1 Manual Muscle Testing Anterior 2 Manual Muscle Testing Posterior 2 Muscle Endurance (Seconds) 10 Number of Quick Contractions In 10 5 Seconds PT-OP-Q Treatments Start: 09/17/18 13:19 Freq: Status: Active Protocol: Document 12/04/18 07:30 AMB (Rec: 12/04/18 16:35 AMB [email or web address]) Gym Equipment Therapeutic Ball 1 Ball Size/Color 65cm Body Position Sitting Reps/Duration 2x10 Comments LAQ, TKE with pelvic floor contraction Therapeutic Exercises Supine Exercises 2 Supine Exercise Name supine september Comments 30 Standing Exercises 5 Standing Exercise Name Mini Squats Equipment Used 0# Reps/Minutes 2x10 Comments TA contraction Other Exercises 1 Other Exercise Name Quadruped alternating arms/ legs Reps/Minutes x15 each Comments VCs for TA contraction, following KT taping PT-OP-T Assessment and Plan Start: 09/17/18 13:19 Freq: Status: Active Protocol: Document 12/04/18 07:30 AMB (Rec: 12/04/18 16:35 AMB [email or web address]) Physical Therapy Assessment Assessment Summary Assessment One leak with sneeze and bending forward in the last week. Continue to encourage patient to find time throughout her day for exercises. Physical Therapy Plan Next Visit Focus/Plan Next Note Type Treatment Note Next Visit Plan Discuss how to make time for exercises in her schedule.
--- NOTE | 2018-12-20 08:29 | PT.OTN ---
Current Diagnoses Other female genital prolapse (12/20/18) Physical Therapy Treatment Note PT-OP-A Visit Information Start: 09/17/18 13:19 Freq: Status: Active Protocol: Document 12/20/18 08:25 AMB (Rec: 12/20/18 08:25 AMB [email or web address]) Out-Patient Physical Therapy Visit Information Visit Information Visit Type Treatment Note Visit Start Time 07:30 Visit Stop Time 08:15 Total Visit Minutes 45 Visit Number 11 PT-OP-B Current Condition Start: 09/17/18 13:19 Freq: Status: Active Protocol: Document 09/17/18 13:45 AMB (Rec: 09/17/18 15:11 AMB [email or web address]) Current Condition History of Current Condition Onset Date June 2018 Current Complaints stress incontinence History of Current Condition Tamiko reports stress incontinence throughout her adult life which has recently worsened with the of her first child in June. Her daughter was 6 pounds but Tamiko reports a second degree tear during vaginal delivery. Since then coughing, laughing , and sneezing have all caused small leaks of urine, especially if she is standing or walking. She has tried to run on the treadmill a few times, and while she has not noticed leaks with that, she does empty her bladder right before getting on the treadmill. She is , but admits she is not drinking enough water. She has not menstruated yet. She does report some discomfort with intercourse, more anteriorly, especially with certain positions. Prior Functional Status Baseline Function- Other intermittent small leaks, but less frequent Current Functional Impairments (Reported) Functional Limitations- Other small leaks that are more frequent ( a few times a week) . 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 PT-OP-C Subjective Start: 09/17/18 13:19 Freq: Status: Active Protocol: Document 12/20/18 07:30 AMB (Rec: 12/20/18 08:25 AMB [email or web address]) OP-PT Subjective Patient Comments Patient Comments Pt feels she is pretty close to how she was before giving . But she did leak at that point. PT-OP-I Pelvic Floor Start: 09/17/18 13:19 Freq: Status: Active Protocol: Document 09/17/18 13:45 AMB (Rec: 09/17/18 15:11 AMB [email or web address]) Pelvic Floor Assessment Urine Pelvic Floor Surgery No Urinary Symptoms Prolapse Pain Leakage Size Small Leakage Cause Cough Exercise Sneeze Leaks Per Day 2-3x/week Voiding Frequency 4x/day Nocturia 1 Urine Pad Type Panty Liner Bowel Bowel Symptoms Constipation Pelvic Clock Pelvic Clock 12-3 Tenderness Pelvic Clock 3-6 Tenderness Pelvic Clock 6-9 Tenderness Pelvic Clock 9-12 Tenderness Pelvic Clock Other tenderness at perineum, but more so at urethra Prolapse Cystocele Grade 3 Rectocele Grade 1 SEMG (uV) Baseline 3.5 Quick Contraction 13 10 Second Contraction 9 Contraction Ability Voluntary Contraction Moderate Voluntary Relaxation Moderate Manual Muscle Testing Left 1 Manual Muscle Testing Right 1 Manual Muscle Testing Anterior 2 Manual Muscle Testing Posterior 2 Muscle Endurance (Seconds) 10 Number of Quick Contractions In 10 5 Seconds PT-OP-Q Treatments Start: 09/17/18 13:19 Freq: Status: Active Protocol: Document 12/20/18 07:30 AMB (Rec: 12/20/18 08:25 AMB [email or web address]) Therapeutic Exercises Supine Exercises 2 Supine Exercise Name supine september Comments 30 1 Supine Exercise Name quick flicks long hold Comments vc for lift Standing Exercises 5 Standing Exercise Name Mini Squats Equipment Used 0# Reps/Minutes 2x10 Comments TA contraction Other Exercises 1 Other Exercise Name Quadruped alternating arms/ legs Reps/Minutes x15 each Comments VCs for TA contraction, following KT taping PT-OP-T Assessment and Plan Start: 09/17/18 13:19 Freq: Status: Active Protocol: Document 12/20/18 07:30 AMB (Rec: 12/20/18 08:25 AMB [email or web address]) Physical Therapy Assessment Assessment Summary Assessment Tamiko has improved her strength, but did still show a grade one prolapse upon assessment today. Continued to encourage patient to modify exercise to avoid pelvic heavines. Physical Therapy Plan Next Visit Focus/Plan Next Note Type Discharge Summary
--- NOTE | 2019-01-08 14:26 | PT.OTN ---
Current Diagnoses Other female genital prolapse (01/08/19) Physical Therapy Treatment Note PT-OP-A Visit Information Start: 09/17/18 13:19 Freq: Status: Active Protocol: Document 01/08/19 07:30 AMB (Rec: 01/08/19 14:20 AMB [email or web address]) Out-Patient Physical Therapy Visit Information Visit Information Visit Type Discharge Summary Visit Start Time 07:30 Visit Stop Time 08:15 Total Visit Minutes 45 Visit Number 12 PT-OP-B Current Condition Start: 09/17/18 13:19 Freq: Status: Active Protocol: Document 09/17/18 13:45 AMB (Rec: 09/17/18 15:11 AMB [email or web address]) Current Condition History of Current Condition Onset Date June 2018 Current Complaints stress incontinence History of Current Condition Tamiko reports stress incontinence throughout her adult life which has recently worsened with the of her first child in June. Her daughter was 6 pounds but Tamiko reports a second degree tear during vaginal delivery. Since then coughing, laughing , and sneezing have all caused small leaks of urine, especially if she is standing or walking. She has tried to run on the treadmill a few times, and while she has not noticed leaks with that, she does empty her bladder right before getting on the treadmill. She is , but admits she is not drinking enough water. She has not menstruated yet. She does report some discomfort with intercourse, more anteriorly, especially with certain positions. Prior Functional Status Baseline Function- Other intermittent small leaks, but less frequent Current Functional Impairments (Reported) Functional Limitations- Other small leaks that are more frequent ( a few times a week) . 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 PT-OP-C Subjective Start: 09/17/18 13:19 Freq: Status: Active Protocol: Document 01/08/19 07:30 AMB (Rec: 01/08/19 14:20 AMB [email or web address]) OP-PT Subjective Patient Comments Patient Comments Pt reports not leaking in last 3 weeks, but also has not been running. Has been doing some yoga for her back and finds that helpful. PT-OP-I Pelvic Floor Start: 09/17/18 13:19 Freq: Status: Active Protocol: Document 09/17/18 13:45 AMB (Rec: 09/17/18 15:11 AMB [email or web address]) Pelvic Floor Assessment Urine Pelvic Floor Surgery No Urinary Symptoms Prolapse Pain Leakage Size Small Leakage Cause Cough Exercise Sneeze Leaks Per Day 2-3x/week Voiding Frequency 4x/day Nocturia 1 Urine Pad Type Panty Liner Bowel Bowel Symptoms Constipation Pelvic Clock Pelvic Clock 12-3 Tenderness Pelvic Clock 3-6 Tenderness Pelvic Clock 6-9 Tenderness Pelvic Clock 9-12 Tenderness Pelvic Clock Other tenderness at perineum, but more so at urethra Prolapse Cystocele Grade 3 Rectocele Grade 1 SEMG (uV) Baseline 3.5 Quick Contraction 13 10 Second Contraction 9 Contraction Ability Voluntary Contraction Moderate Voluntary Relaxation Moderate Manual Muscle Testing Left 1 Manual Muscle Testing Right 1 Manual Muscle Testing Anterior 2 Manual Muscle Testing Posterior 2 Muscle Endurance (Seconds) 10 Number of Quick Contractions In 10 5 Seconds PT-OP-Q Treatments Start: 09/17/18 13:19 Freq: Status: Active Protocol: Document 01/08/19 07:30 AMB (Rec: 01/08/19 14:26 AMB [email or web address]) Therapeutic Exercises Supine Exercises 4 Supine Exercise Name double leg table top Comments challenging with good form 2 Supine Exercise Name supine september Comments 30 Standing Exercises 5 Standing Exercise Name Mini Squats Equipment Used 0# Reps/Minutes 2x10 Comments TA contraction Other Exercises 1 Other Exercise Name Quadruped alternating arms/ legs Reps/Minutes x15 each Comments VCs for TA contraction, following KT taping PT-OP-T Assessment and Plan Start: 09/17/18 13:19 Freq: Status: Active Protocol: Document 01/08/19 07:30 AMB (Rec: 01/08/19 14:20 AMB [email or web address]) Physical Therapy Assessment Goals Three Impairment continence Short Term Goal (STG) Tamiko will report she is able to avoid a leak with coughing if she contracts her pelvic floor muscles before the cough . STG Duration MET Management Developer Goal (LTG) Tamiko will engage in the exercise of her choice without leaking. 01/08: progress made , Tamiko can run but feels pelvic heaviness after 10 minutes, no leaking LTG Duration PROGRESS MADE Two Impairment painful intercourse Short Term Goal (STG) Tamiko will engage in the postion of her choice without an increase in pelvic pain. STG Duration MET One Impairment pelvic floor strength Short Term Goal (STG) Tamiko will increase her pelvic floor strength to 4/5. STG Duration PROGRESS MADE Penitentiary Goal (LTG) Tamiko will peform a pelvic floor contraction while squatting. LTG Duration MET Assessment Summary Assessment Tamiko had questions regarding being able to do the [employer] requirements of running, sit ups, and pushups. Form with a sit up today was not good, showing coning with sit up. Tamiko does understand how to work up to situps with her core exercises at this time. Pelvic floor has improved well , but TrA continues to be weak . Physical Therapy Plan Discharge Physical Therapy Discharge Reasons Goals Met Discharge Comments Pt will need to continue to progress strengthening but feels she can do this independently at this time
== END 2019-01-09 16:09 | disposition home or self-care (01) ==
LOC: PHYS 07:30
PROVIDERS: Visit Provider Registered Nurse Diabetes Educator
DX: N81.89 Other female genital prolapse (principal)
CPT/HCPCS: 97110; 97112; 97161